=== PATIENT | male | born 1940 | race Two or more races ===

== ENCOUNTER 2018-06-30 02:38 | Emergency (ER) | payer MEDICAID ==
[~2018-06-30] VITALS: Ht 167.6 cm; Wt 99.8 kg
--- NOTE | 2018-06-30 03:03 | NUR ---
BIBRA, S/P GLF WITH FOREHEAD LACERATION , NOTED AOX3, ON R/A, WELL TOLERATED, BLEEDING ABLE TO STOP, VS OBTAINED, PLACED ON ER BED 13, AWAITING FOR ER MD TO EVAL.
--- NOTE | 2018-06-30 03:06 | NUR ---
SEEN AND EVAL DONE BY DR BLANC, AWAITING TX ORDERS.
[2018-06-30] MEDS ORDERED: LIDOCAINE 1%-EPI 1:100,000 20 ML VIAL ONE (03:16)
[2018-06-30] MEDS ORDERED: TDAP [DIPH/PERTUSSIS/TET] 0.5 ML VIAL IM ONE ×2 (03:16→03:30)
[2018-06-30] MEDS ORDERED: LIDOCAINE 1%-EPI 1:100,000 20 ML VIAL TP ONE (03:30)
--- NOTE | 2018-06-30 03:35 | NUR ---
PT TAKEN TO CT HEAD, FACIAL AND CERVICAL.
--- NOTE | 2018-06-30 03:35 | NUR ---
TDAP GIVEN RT DELTOID, LIDOCAINE TO BE ADMINISTERED BY ER MD FOR WOUND TX.
--- NOTE | 2018-06-30 03:49 | NUR ---
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
--- NOTE | 2018-06-30 05:18 | NUR ---
CALLED [facility] FOR CT READS PER DR BLANC REQUEST
--- NOTE | 2018-06-30 05:29 | NUR ---
DR BLANC AT BEDSIDE WITH PT FOR WOUND TX, 5 STICHES AT LACERATION SITE MID FORE HEAD, LIDOCAINE USED, PROCEDURE SUCESSFUL, PT DENIES ANY PAIN.
--- NOTE | 2018-06-30 06:11 | NUR ---
CALLED [facility] FOR TRANSPORT ETA OF [phone] WAS GIVEN. TRIP#[id number]
[2018-06-30] MEDS ORDERED: ACETAMINOPHEN 325 MG TABLET ONE (06:28)
[2018-06-30] MEDS ORDERED: ACETAMINOPHEN 325 MG TABLET PO ONE (06:30)
--- NOTE | 2018-06-30 07:05 | NUR ---
ENDORSED PT TO Yayo INGRAM RN FOR SHERICE.
--- NOTE | 2018-06-30 07:07 | NUR ---
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 PT ALERT WITH ORIENTATION X 4
--- NOTE | 2018-06-30 08:44 | NUR ---
PT DISCHARGED TO HOME WITH [facility] #[id number] PT GIVEN [facility] REPORT WITH CD PT WILL FOLLOW UP WITH PMD
[2018-06-30 08:47] VITALS: BP 153/67
== END 2018-06-30 08:47 | disposition home or self-care (01) ==
LOC: ER 02:42
DX: S01.81XA Laceration without foreign body of other part of head, initial encounter (principal); H11.31 Conjunctival hemorrhage, right eye; I12.9 Hypertensive chronic kidney disease with stage 1 through stage 4 chronic kidney disease, or unspecified chronic kidney disease; E11.22 Type 2 diabetes mellitus with diabetic chronic kidney disease; N18.9 Chronic kidney disease, unspecified; I25.10 Atherosclerotic heart disease of native coronary artery without angina pectoris; M48.00 Spinal stenosis, site unspecified; Z95.818 Presence of other cardiac implants and grafts; Z98.890 Other specified postprocedural states; W18.39XA Other fall on same level, initial encounter; Y93.89 Activity, other specified; Y92.89 Other specified places as the place of occurrence of the external cause; Y99.8 Other external cause status
CPT/HCPCS: 12013; 70450; 70486; 72125; 90471; 90715; 99284; A6402; A6403 ×2; J3490